=== PATIENT | male | born 1970 | race Caucasian/White ===

== ENCOUNTER 2018-08-18 11:33 | Inpatient (IN) | payer BC ==
[~2018-08-18] VITALS: Ht 170.2 cm; Wt 104.7 kg
[2018-08-18 12:21] LABS: Basophils # (auto) 0.1 uL; Basophils % (auto) 0.6 % (0.0-2.0); Eosinophils # (auto) 0.2 uL; Eosinophils % (auto) 1.8 % (0.0-7.0); Hematocrit 49.8 % (41.0-53.0); Hemoglobin 17.4 g/dL (13.5-17.5); Lymphocytes # (auto) 2.4 uL; Lymphocytes % (auto) 23.4 % (10.0-50.0); Mean Corpuscular Hemoglobin 29.5 pg (28.0-32.0); Mean Corpuscular Volume 84.2 fL (80.0-100.0); Monocytes # (auto) 0.6 uL; Monocytes % (auto) 5.5 % (0.0-12.0); Neutrophils # (auto) 6.9 uL; Neutrophils % (auto) 68.7 % (37.0-80.0); Nucleated Red Blood Cells % 0.1 %; Platelet Count (auto) 315 10^3/uL (140-450); Red Blood Cells 5.92 10^6/uL (4.5-5.90); Red Cell Distribution Width 13.2 % (11.8-14.3); White Blood Cell 10.1 10^3/uL (4.4-10.8)
[2018-08-18 12:26] LABS: Urine Bacteria NONE SEEN /hpf (None Seen); Urine Blood Negative /uL (Negative); Urine Specific Gravity 1.014 (1.001-1.035); Urine WBC <1 /hpf (0 - 3)
[2018-08-18 12:37] LABS: Albumin 3.6 g/dL (3.4-5.0); Calcium 8.5 mg/dL (8.5-10.1); Potassium 4.2 mmol/L (3.5-5.1)
[2018-08-18 12:41] LABS: BUN/Creatinine Ratio 11.7; Bilirubin, Total 0.4 mg/dL (0.2-1.0); Total Protein 8.1 g/dL (6.4-8.2)
[2018-08-18 16:12] LABS: Blood Alcohol < 3.0 mg/dL (0-5); Magnesium 2.6 mg/dL (1.6-2.6)
[2018-08-18 16:21] LABS: INR 0.96 (0.9-1.15); Partial Thromboplastin Time 27.2 sec (23.78-33.04); Prothrombin Time 10.3 sec (9.27-12.13)
[2018-08-18] MEDS ORDERED: LISINOPRIL 10 MG TAB PO ONE (22:00)
[2018-08-18] MEDS ORDERED: ACETAMINOPHEN 500 MG TAB PO PRN (22:15)
[2018-08-18] MEDS ORDERED: ONDANSETRON HCL 4 MG/2 ML VIAL IV PRN (22:15)
[2018-08-18] MEDS ORDERED: cloNIDine HCL 0.1 MG TAB PO PRN (23:30)
[2018-08-18] MEDS ORDERED: TEMAZEPAM 15 MG CAP PO PRN (23:30)
--- NOTE | 2018-08-18 23:30 | NUR ---
RECEIVED PATIENT FROM ED VIA WHEELCHAIR, AWAKE, ALERT, ORIENTED X4, AMBULATORY, SPEAKS CLEARLY, DENIES HEADACHE AND DIZZINESS. NO S/S OF RESPIRATORY DISTRESS, DENIES SOB AND CHEST PAIN. WITH IV ON THE LEFT FOREARM GAUGE 18 SL. SKIN IS INTACT. ORIENTED ON PLAN OF CARE. BED IS LOCKED AND IN LOWEST LEVEL, SIDE RAILS UP X2, CALL LIGHT WITHIN REACH. WILL CONTINUE TO MONITOR
[2018-08-19] MEDS ORDERED: TRAZ100T2 PO (00:07)
[2018-08-19 00:10] VITALS: BP 134/90
[2018-08-19 05:49] VITALS: BP 129/84
[2018-08-19 06:03] LABS: Basophils # (auto) 0.1 uL; Basophils % (auto) 0.4 % (0.0-2.0); Eosinophils # (auto) 0.2 uL; Eosinophils % (auto) 1.8 % (0.0-7.0); Hematocrit 51.9 % (41.0-53.0); Hemoglobin 17.6 g/dL (13.5-17.5); Lymphocytes # (auto) 2.6 uL; Lymphocytes % (auto) 20.1 % (10.0-50.0); Mean Corpuscular Hemoglobin 28.9 pg (28.0-32.0); Mean Corpuscular Hgb Conc. 33.8 g/dL (32.0-36.0); Mean Corpuscular Volume 85.4 fL (80.0-100.0); Monocytes # (auto) 0.9 uL; Neutrophils # (auto) 9.2 uL; Neutrophils % (auto) 70.7 % (37.0-80.0); Nucleated Red Blood Cells % 0.2 %; Platelet Count (auto) 312 10^3/uL (140-450); Red Blood Cells 6.08 10^6/uL (4.5-5.90); Red Cell Distribution Width 13.2 % (11.8-14.3)
[2018-08-19 06:36] LABS: BUN/Creatinine Ratio 10.4; Calcium 9.1 mg/dL (8.5-10.1); Potassium 4.2 mmol/L (3.5-5.1)
--- NOTE | 2018-08-19 07:25 | NUR ---
CARE ENDORSED TO AM SHIFT RN
--- NOTE | 2018-08-19 07:30 | NUR ---
Morning note patient resting in bed with even and unlabored respirations, no distress noted. Fall precautions in place. Instructed patient on POC, fall precautions and to call for assistance as needed. patient verbalized understanding. Will continue to monitor q1hr & PRN.
[2018-08-19 09:00] VITALS: BP 129/92
[2018-08-19 12:12] VITALS: BP 146/89
[2018-08-19 13:00] VITALS: BP 146/89
--- NOTE | 2018-08-19 14:42 | NUR ---
Discharge Discharge education and paperwork given to the patient. Patient instructed on follow up appointment scheduled. Patient verbalized understanding. IV removed with clean technique, catheter intact. Dressing applied. Patient tolerated well. Patient refused a wheelchair. Patient ambulated with a steady gait to the hospital entry. Patient's spouse is transporting patient. No distress noted at this time.
[2018-08-19] MEDS ORDERED: traZODone HCL 50 MG TAB PO SCH (22:00)
== END 2018-08-19 14:45 | disposition home or self-care (01) | DRG 69 ==
LOC: ER 11:37 → OVERFLOW 22:06 → CENTRAL 23:04
PROVIDERS: ADMIT Nurse Practitioner Family; ATTEND Internal Medicine
DX: G45.9 Transient cerebral ischemic attack, unspecified (principal); E66.9 Obesity, unspecified; I10 Essential (primary) hypertension; F10.10 Alcohol abuse, uncomplicated; Z79.899 Other long term (current) drug therapy; Z80.52 Family history of malignant neoplasm of bladder; Z82.0 Family history of epilepsy and other diseases of the nervous system; Z82.3 Family history of stroke; Z82.49 Family history of ischemic heart disease and other diseases of the circulatory system; Z83.3 Family history of diabetes mellitus; Z68.36 Body mass index [BMI] 36.0-36.9, adult
CPT/HCPCS: 36415; 70450; 71045; 80048; 80053; 80320; 81001; 82962; 83735; 84484; 85025; 85610; 85730; 93005; G0378

== ENCOUNTER → 2020-08-10 | Outpatient (CLI) | payer BC ==
[~2020-08-10] MED LIST: TRAZ100T3 PO
== END | disposition home or self-care (01) ==
LOC: XYW 09:39
PROVIDERS: ATTEND Psychiatry & Neurology Neurology
DX: G20 Parkinson's disease (principal)
CPT/HCPCS: 70551